=== PATIENT | male | born 1990 | race Caucasian/White ===

== ENCOUNTER 2018-01-09 09:00 | Outpatient (CLI) | payer MEDICAID, SELFPAY | END 2018-01-09 09:01 | PROVIDERS: PCP Family Medicine; Visit Provider Nurse Practitioner Family | DX: B18.2 Chronic viral hepatitis C (principal); Z23 Encounter for immunization | CPT/HCPCS: 90471; 90636; 99203; 99214 ==

== ENCOUNTER 2018-07-22 14:02 | Outpatient (CLI) | payer MEDICAID, SELFPAY ==
--- NOTE | 2018-07-22 14:08 | W.CCNOTE ---
Date of service: 07/19/18 Time of Service: 14:08 Comprehensive Care Clinic Note Note: [facility] [address] [place] [address] [facility] Follow Up Visit Name: Dylon Huynh Date of : 1990 Date of Service: 07/19/2018 SUBJECTIVE: This is a post HCV treatment follow up visit for Dylon who was initially evaluated by me at the [facility] on 12/03/2017 and had a follow up visit on 01/09/2018 where lab results were discussed, the denial of the PA for HCV medication as there was a request for a VCTE fibrosis score and a Vibration Controlled Transient Elastography (Fibroscan) was ordered. He had the scan done on 02/06/18 which showed intermediate stage fibrosis (F2). On 02/18/18 another PA request was sent to [facility] and was approved for 12 weeks of Epclusa 400/100mg tablets was then approved. Dylon started the medication on 03/20/2018 and did not miss any doses. He states he has no ASEs and feels over all improved since taking the medication. He finished it on 06/11/2018. He is due to have follow up blood work now. ROS: 10 point ROS is neg ? ?I feel really good.? Update Past Medical/Surgical/Psychiatric History: Non sig Allergies/Sensitivities: PCN - anaphylaxis Current Medications: MTD 140mg a day. He is stable in MAT w 13 THs necessitating a twice a month face to face dosing and monthly counseling at the [facility] in [place]. 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 he states he did not drink ETOH while taking it. Illicit Drug Use: Crushed opiate pills and used IV for about 6 months prior to ebetering MAT ? never Heroin/Fentanyl RX Drug Dependence: MTD since 2016 IVDU Hx? Last: Overdose Hx? Added Hx/Treatment: Other Psychosocial Considerations: OBJECTIVE Temp: 98.4, Pulse: 76, Resp: 14, BP: 132/80 WT 225# General: AINAD looking well and blood was drawn from the right volar wrist area. Tubes are spin and sent to [facility]. he will be contacted with the results. Skin: clear Eyes: non icteric Cardiac: RRR no MCRG Chest/Lungs: clear Abdomen: NABS, ND, NT, No ogm Extremities: No edema Psych: Mood: buoyant, Affect: normal ASSESSMENT/PLAN: Chronic Active HCV infection with completion of 84 days of Epclusa 400/100mg tabs w/o ASEs Lab Work: Drawn and sent to his local lab for CMP and HCV PCR QN. I will contact him with the results and plan for further lab work for confirmation of clearing the virus. Provider of Care: Jacki Muhammad NP
--- NOTE | 2018-07-22 14:22 | CCCE_ITS ---
Date of service: 07/22/18 Time of Service: 14:21 Comprehensive Care Clinic Note Note: [facility] [address] [place] [address] [facility] Follow Up Visit Name: Dylon Huynh Date of : 1990 Date of Service: 07/22/2018 SUBJECTIVE: This is a post HCV treatment follow up visit for Dylon who was initially evaluated by me at the [facility] on 12/03/2017 and had a follow up visit on 01/09/2018 where lab results were discussed, the denial of the PA for HCV medication as there was a request for a VCTE fibrosis score and a Vibration Controlled Transient Elastography (Fibroscan) was ordered. He had the scan done on 02/06/18 which showed intermediate stage fibrosis (F2). On 02/18/18 another PA request was sent to [facility] and was approved for 12 weeks of Epclusa 400/100mg tablets was then approved. Dylon started the medication on 03/20/2018 and did not miss any doses. He states he has no ASEs and feels over all improved since taking the medication. He finished it on 06/11/2018. He is due to have follow up blood work now. ROS: 10 point ROS is neg ? ?I feel really good.? Update Past Medical/Surgical/Psychiatric History: Non sig Allergies/Sensitivities: PCN - anaphylaxis Current Medications: MTD 140mg a day. He is stable in MAT w 13 THs necessitating a twice a month face to face dosing and monthly counseling at the [facility] in [place]. 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 he states he did not drink ETOH while taking it. Illicit Drug Use: Crushed opiate pills and used IV for about 6 months prior to ebetering MAT ? never Heroin/Fentanyl RX Drug Dependence: MTD since 2016 IVDU Hx? Last: Overdose Hx? Added Hx/Treatment: Other Psychosocial Considerations: OBJECTIVE Temp: 98.4, Pulse: 76, Resp: 14, BP: 132/80 WT 225# General: AINAD looking well and blood was drawn from the right volar wrist area. Tubes are spin and sent to [facility]. he will be contacted with the results. Skin: clear Eyes: non icteric Cardiac: RRR no MCRG Chest/Lungs: clear Abdomen: NABS, ND, NT, No ogm Extremities: No edema Psych: Mood: buoyant, Affect: normal ASSESSMENT/PLAN: Chronic Active HCV infection with completion of 84 days of Epclusa 400/100mg tabs w/o ASEs Lab Work: Drawn and sent to his local lab for CMP and HCV PCR QN. I will contact him with the results and plan for further lab work for confirmation of clearing the virus. Provider of Care: Jacki Muhammad NP
== END 2018-07-22 14:22 ==
PROVIDERS: PCP Family Medicine; Visit Provider Nurse Practitioner Family
DX: B18.2 Chronic viral hepatitis C (principal); F11.20 Opioid dependence, uncomplicated
CPT/HCPCS: 99213